=== PATIENT | female | born 1990 | race Caucasian/White ===

== ENCOUNTER 2025-07-16 23:07 | Observation (INO) | payer SELFPAY ==
[~2025-07-16] VITALS: Ht 149.9 cm; Wt 88.0 kg
[2025-07-17 00:22] LABS: Amphetamine Screen, Urine Neg (NEGATIVE); Barbiturate Scree,Urine Neg (NEGATIVE); Benzodiazephine Screen, Urine Neg (NEGATIVE); Cannabinoid Screen, Urine Neg (NEGATIVE); Cocaine Screen, Urine Neg (NEGATIVE); Opiate Scree,Urine Neg (NEGATIVE); Phencyclidine Screen, Urine Neg (NEGATIVE)
[2025-07-17 01:02] LABS: Urine Protein, UAD Negative (Negative)
--- NOTE | 2025-07-17 01:51 | DVHDS2 ---
Physician Discharge Progress N Final Diagnosis: 22 weeks Problems List: (1) Flank pain (2) Multigravida in second trimester (3) 22 weeks gestation of Commentary: Commentary Subjective 35y/o (3,0,2,3) IUP 22w6d PINA 11/14/[address] She reports normal movements, Denies VB/LOF or Cramping Reporting Right Flank Pain that has started this week Recently moved to the area from [place] Is trying to establish care in the area. Received some PNC with [facility] new partner in Reported Anemia in the current and taking Fe Current medications: PNV /Fe/ ASA 162 mg daily History X3 all term pregnancies #1 6lb infant #2 6.5 #3 7.3 lb Surgery Tonsillectomy Objective Resp unlabored Appears comfortable Abdomen soft and non tender to palpation Laboratory Results Laboratory Tests Test 07/16/25 23:37 Urine Color Light-yellow (Yellow) Urine Clarity Clear (Clear) Urine pH 6.5 (5.0-9.0) Urine Specific [place] 1.007 (1.001-1.035) Urine Protein Negative (Negative) Urine Ketones Negative (Negative) Urine Blood Negative /uL (Negative) Urine Nitrite Negative (Negative) Urine Bilirubin Negative (Negative) Urine Urobilinogen Normal mg/dL (Negative) Urine Leukocyte Esterase Negative /uL (Negative) Urine RBC <1 /hpf (0 - 4) Urine Microscopic WBC < 1 /HPF (0-5) Urine Squamous Epithelial Cells Few /hpf (<5) Urine Bacteria Few /hpf (None Seen) Urine Mucus Few (None Seen) Urine Glucose Normal mg/dL (Normal) Urine Opiates Screen Neg (NEGATIVE) Urine Fentanyl Screen Neg (NEGATIVE) Urine Barbiturates Screen Neg (NEGATIVE) Urine Phencyclidine Screen Neg (NEGATIVE) Urine Amphetamines Screen Neg (NEGATIVE) Urine Benzodiazepines Screen Neg (NEGATIVE) Urine Cocaine Screen Neg (NEGATIVE) Urine Cannabinoids Screen Neg (NEGATIVE) Ultrasound done Reported GA 22w6d Cervical Length 4.6 MVP 8.0 No abruption or previa noted in U/S Assessment/ Plan (3,0,2,3) IUP 22w6d Rt Flank Pain UA C&S P.O hydration Abdominal US Re-Assessment @ 0130 ultrasound reported MVP 8.0 Cervical Length 4.6 FHR 135 No abruption or placenta GA 22w6d U/A report clear Plan Discharge to home in stable condition Establish care in the area Resources given to patient for care in the area. Discharge home Advised to increase water intake. Follow up with OB care Provider the soonest Continue ASA/PNV/FE Keep all scheduled appointments; seek care sooner if needed Condition on Discharge: Stable Disposition: Home Discharge Instructions: Diet: Regular Activity: No Restrictions, As Tolerated Follow Up/Referral: Obtain OB appt [facility] Medications: PNV/Fe/ASA Discharge Care Plan Problem Pain, Increase in fluid intake Goals Pain relieved Know Disease Process Adequate fluid volume Remain free of infection Instructions Take Rx medications, Notify MD of any issues, Keep list of meds w/ you Visit Coding OBGYN Date of Service: Jul 17, 2025 Billing Provider: BALDEMAR OSWALD CNM [employer] REPRESENTATIVE Common Visit Codes: [id number] OBS CARE (MOD) BALDEMAR OSWALDKSct 2024 01:51
--- NOTE | 2025-07-17 02:09 | DVH ---
LIMITED OB ULTRASOUND > 14 WKS: HISTORY: FLANK PAIN TECHNIQUE: Transabdominal and transvaginal sonographic imaging of maternal and structures. COMPARISON: None FINDINGS: IUP single gestation with cardiac activity at 22 weeks 6 days based on composite averages of the BPD, head circumference, abdominal circumference and femur length Estimated weight: 554 grams heart rate: 136 beats per minute Single deepest pocket: 8 cm Cervix: Visualized, appears closed. Imaged structures are unremarkable. Right lateral placenta. No evidence of previa or abruption. IMPRESSION: 1. Intrauterine gestation with cardiac activity at 22 weeks 6 days AUA corresponding to an PINA of 11/2025. 2. No evidence of gestational complication.
== END 2025-07-17 01:37 | disposition home or self-care (01) ==
LOC: LDRP 23:07
PROVIDERS: ADMIT Obstetrics & Gynecology; ATTEND Obstetrics & Gynecology
DX: O26.892 Other specified pregnancy related conditions, second trimester (principal); R10.9 Unspecified abdominal pain; O99.012 Anemia complicating pregnancy, second trimester; O09.522 Supervision of elderly multigravida, second trimester; Z3A.22 22 weeks gestation of pregnancy; Z98.890 Other specified postprocedural states; Z79.899 Other long term (current) drug therapy
CPT/HCPCS: 76805; 76817; 80307; 81001; 81002; 87086; 94760; G0378